=== PATIENT | male | born 1980 | race Caucasian/White ===

== ENCOUNTER 2020-10-15 04:47 | Emergency (ER) | payer OTHER ==
[2020-10-15 05:19] VITALS: TEMP 97.7; BMI 37.6
[2020-10-15] MEDS ORDERED: DEXAMETHASONE SOD PHOSPHATE 10 MG/1 ML VIAL PO ONE (05:22)
[2020-10-15] MEDS ORDERED: DEXAMETHASONE SOD PHOSPHATE 10 MG/1 ML VIAL ONE (05:44)
[2020-10-15 06:50] LABS: MEAN CELL VOLUME 88.6 fl (80-96)
[2020-10-15 07:07] LABS: CHLORIDE 102 mmol/L (98-107); SODIUM 135 mmol/L (136-145)
[2020-10-15 07:09] LABS: CALCIUM 8.8 mg/dL (8.5-10.1)
[2020-10-15 07:10] LABS: ALBUMIN 4.4 g/dl (3.4-5.0); ANION GAP 8 MMOL/L (8-16); BLOOD UREA NITROGEN 20.1 mg/dL (7-18); CO2 24 mmol/L (21-32); GLUCOSE,RANDOM 101 mg/dL (74-106)
[2020-10-15 07:13] LABS: CREATININE 1.3 mg/dL (0.55-1.3); SGOT/AST 59 U/L (15-37); SGPT/ALT 63 U/L (13-61)
[2020-10-15 07:14] LABS: BILIRUBIN,TOTAL 0.6 mg/dL (0.2-1)
[2020-10-15 07:15] LABS: TOT PROT 8.1 g/dl (6.4-8.2)
[2020-10-15 07:16] LABS: ALK PHOS 95 U/L (45-117)
[2020-10-15 07:28] LABS: BASO % 0.7 % (0-2.0); HEMATOCRIT 44.6 % (35.4-49); LYMPH % 29.2 % (8-40); MCH 31.8 pg (25.7-33.7); MCHC 35.9 g/dl (32.0-35.9); MEAN PLT VOLUME 8.7 fl (7.5-11.1); MONO % 8.8 % (3.8-10.2); NEUT % 57.3 % (42.8-82.8); PLATELET COUNT 215 10^3/uL (134-434); RBC 5.04 M/mm3 (4.00-5.60); RDW 13.4 % (11.9-15.9)
[2020-10-15 09:14] VITALS: BP 132/75; PULSE 82
[2020-10-15] MEDS ORDERED: CLINDAMYCIN HCL 150 MG CAPSULE (FP) PO ONE (09:14)
[2020-10-15] MEDS ORDERED: CLINDAMYCIN HCL 150 MG CAPSULE (FP) ONE (09:39)
== END 2020-10-15 12:20 ==
LOC: JER 04:47
DX: R09.89 Other specified symptoms and signs involving the circulatory and respiratory systems (principal)
CPT/HCPCS: 36415; 70491-TC; 80053; 82550; 82553; 84484; 85025; 87880; 93005; 93010; 99285-25; J1100; Q9967

== ENCOUNTER 2023-02-13 08:35 | Day surgery (SDC) | payer OTHER ==
[~2023-02-13 08:35] MED LIST: ceFAZolin 2 GRAM PREMIX BAG IVPB ONE
[2023-02-13 08:39] VITALS: BMI 37.6
[2023-02-13] MEDS ORDERED: DEXAMETHASONE SOD PHOSPHATE 4 MG/1 ML VIAL ONE (11:38)
[2023-02-13] MEDS ORDERED: ROPIVACAINE HCL 0.5% 30ML VIAL ONE (11:38)
[2023-02-13] MEDS ORDERED: MIDAZOLAM HCL 2 MG/2 ML SINGLE DOSE VIAL ONE (11:39)
[2023-02-13] MEDS ORDERED: PROPOFOL 20 ML ONE (11:39)
[2023-02-13] MEDS ORDERED: LIDOCAINE HCL/PF 2% SDV 5ML VIAL ONE (11:39)
[2023-02-13] MEDS ORDERED: ceFAZolin 2 GRAM PREMIX BAG IVPB ONE (12:16)
[2023-02-13] MEDS ORDERED: ceFAZolin SODIUM 1 GM VIAL ONE (12:30)
[2023-02-13] MEDS ORDERED: ONDANSETRON 4 MG/2 ML VIAL ONE (14:01)
[2023-02-13] MEDS ORDERED: KETOROLAC TROMETHAMINE 30 MG/1 ML VIAL ONE (14:01)
[2023-02-13] MEDS ORDERED: ONDANSETRON 4 MG/2 ML VIAL IVPUSH PRN (14:29)
[2023-02-13] MEDS ORDERED: oxyCODONE HCL 5 MG TABLET PO PRN ×2 (14:29)
[2023-02-13] MEDS ORDERED: ACETAMINOPHEN 325 MG TABLET (FP) PO PRN (14:29)
[2023-02-13] MEDS ORDERED: LACTATED RINGERS SOLUTION 1,000 ML IV SCH (14:30)
[2023-02-13 16:54] VITALS: RESP 18
[2023-02-13 17:25] VITALS: BP 133/67; PULSE 54; TEMP 97
== END 2023-02-13 17:30 | disposition home or self-care (01) ==
LOC: JER 08:35 → JASUSAT 09:33
PROVIDERS: ATTEND Orthopaedic Surgery
PROC: 0LM40ZZ Reattachment of Left Upper Arm Tendon, Open Approach (ICD-10-PCS; principal; 2023-02-13 12:00)
DX: S46.212A Strain of muscle, fascia and tendon of other parts of biceps, left arm, initial encounter (principal); X58.XXXA Exposure to other specified factors, initial encounter; Y93.9 Activity, unspecified; Y92.9 Unspecified place or not applicable; Y99.9 Unspecified external cause status
CPT/HCPCS: 94760; 99285-25

== ENCOUNTER 2023-03-15 09:58 | Emergency (ER) | payer OTHER ==
[2023-03-15 10:19] VITALS: TEMP 98.4; BMI 36.9
[2023-03-15] MEDS ORDERED: ACETAMINOPHEN 1000 MG/100 ML BAG IVPB ONE (12:06)
[2023-03-15] MEDS ORDERED: FAMOTIDINE 20 MG/50 ML IVPB 20 MG/50 ML MG IVPB ONE ×2 (12:06→12:33)
[2023-03-15] MEDS ORDERED: MAG HYDROX/AL HYDROX/SIMETH 30 ML UNIT-DOSE CUP PO ONE (12:06)
[2023-03-15 12:08] LABS: POTASSIUM 4.3 mmol/L (3.5-5.1)
[2023-03-15 12:10] LABS: PH,URINE 8.5 (5.0-8.0); URINE APPEARANCE CLEAR; URINE BILIRUBIN NEGATIVE (NEGATIVE); URINE COLOR YELLOW; URINE GLUCOSE (UA) NEGATIVE (NEGATIVE); URINE KETONE NEGATIVE (NEGATIVE); URINE LEUK ESTERASE NEGATIVE (NEGATIVE); URINE NITRITE NEGATIVE (NEGATIVE); URINE PROTEIN NEGATIVE (NEGATIVE); URINE UROBILINOGEN 0.2 mg/dL (0.2-1.0)
[2023-03-15 12:11] LABS: ALBUMIN 4.2 g/dl (3.4-5.0); BLOOD UREA NITROGEN 13.9 mg/dL (7-18); CALCIUM 9.5 mg/dL (8.5-10.1)
[2023-03-15 12:13] LABS: CREATININE 1.1 mg/dL (0.55-1.3)
[2023-03-15 12:15] LABS: BILIRUBIN,TOTAL 0.6 mg/dL (0.2-1); TOT PROT 7.5 g/dl (6.4-8.2)
[2023-03-15] MEDS ORDERED: MAG HYDROX/AL HYDROX/SIMETH 30 ML UNIT-DOSE CUP ONE (12:33)
[2023-03-15] MEDS ORDERED: ACETAMINOPHEN INJECTION 100 ML IVPB ONE (12:33)
[2023-03-15 12:34] LABS: BASO % 0.8 % (0-2.0); EOS % 7.4 % (0-4.5); HEMATOCRIT 42.1 % (35.4-49); HEMOGLOBIN 14.5 GM/dL (11.7-16.9); LYMPH % 29.1 % (8-40); MCH 30.4 pg (25.7-33.7); MCHC 34.5 g/dl (32.0-35.9); MEAN CELL VOLUME 88.1 fl (80-96); MEAN PLT VOLUME 8.1 fl (7.5-11.1); MONO % 7.3 % (3.8-10.2); NEUT % 55.4 % (42.8-82.8); PLATELET COUNT 215 10^3/uL (134-434); RBC 4.77 M/mm3 (4.00-5.60); RDW 13.7 % (11.9-15.9); WHITE BLOOD COUNT 5.3 K/mm3 (4.0-10.0)
[2023-03-15 13:30] VITALS: BP 115/79; PULSE 59; RESP 18
== END 2023-03-15 13:37 | disposition home or self-care (01) ==
LOC: JER 09:58
PROC: 3E033GC Introduction of Other Therapeutic Substance into Peripheral Vein, Percutaneous Approach (ICD-10-PCS; principal; 2023-03-15)
PROC: 3E033NZ Introduction of Analgesics, Hypnotics, Sedatives into Peripheral Vein, Percutaneous Approach (ICD-10-PCS; 2023-03-15)
DX: R07.89 Other chest pain (principal); R00.2 Palpitations; R42 Dizziness and giddiness
CPT/HCPCS: 36415; 71046-TC-FY; 80053; 81003; 84484; 85025; 85379; 87086; 93005; 93010; 99285-25